=== PATIENT | male | born 1955 | race Caucasian/White ===

== ENCOUNTER 2022-10-07 07:32 | Outpatient (CLI) | payer MEDICARE, BC, SELFPAY | END 2022-10-07 07:33 | disposition home or self-care (01) | PROVIDERS: PCP Nurse Practitioner Family; Visit Provider Family Medicine | DX: M47.816 Spondylosis without myelopathy or radiculopathy, lumbar region (principal) | CPT/HCPCS: 64493; 64494; J0702; Q9966 ==

== ENCOUNTER 2023-01-13 10:25 | Outpatient (CLI) | payer MEDICARE, BC, SELFPAY | END 2023-01-13 10:26 | disposition home or self-care (01) | LOC: INJ CL 10:26 | PROVIDERS: PCP Nurse Practitioner Family; Visit Provider Family Medicine | DX: M54.16 Radiculopathy, lumbar region (principal) | CPT/HCPCS: 62323; J0702; Q9966 ==